=== PATIENT | female | born 1985 | race Caucasian/White ===

== ENCOUNTER 2017-11-04 08:43 | Emergency (ER) | payer OTHER, MEDICAID ==
[2017-11-04 08:51] VITALS: BP 118/61
[2017-11-04 09:23] LABS: APPEARANCE,URINE CLOUDY; BILIRUBIN,URINE NEGATIVE (NEGATIVE); COLOR,URINE YELLOW; GLUCOSE, URINE NEGATIVE (NEGATIVE); KETONES,URINE NEGATIVE (NEGATIVE); LEUKOCYTE ESTERASE,URINE LARGE (NEGATIVE); NITRITE,URINE NEGATIVE (NEGATIVE); PROTEIN,URINE NEGATIVE (NEGATIVE); URINE SPECIFIC GRAVITY 1.015; UROBILINOGEN,URINE NEGATIVE mg/dL (<2.0)
--- NOTE | 2017-11-04 09:38 | ER Document Report ---
HPI - HPI Patient complains to provider of: Dysuria Pain Level: 3 Context: Patient is a 32-year-old healthy female complaining of dysuria, urinary urgency , frequency and small voids. All of the symptoms came on acutely last evening. Patient does have a history of urinary tract infections. Patient denies any fever, flank pain, abdominal pain, vaginal discharge or vaginal pain Associated Symptoms: None Exacerbated by: Denies Relieved by: Denies Similar symptoms previously: Yes Recently seen / treated by doctor: No - ROS Systems Reviewed and Negative: Yes All other systems reviewed and negative Past Medical History - General Information source: Patient - Social History Smoking Status: Current Every Day Smoker Frequency of alcohol use: None Drug Abuse: None Lives with: Family Family History: Reviewed & Not Pertinent Patient has suicidal ideation: No Patient has homicidal ideation: No - Medical History Medical History: Negative Renal/ Medical History: Denies: Hx Peritoneal Dialysis Vertical Provider Document - CONSTITUTIONAL Agree With Documented VS: Yes Exam Limitations: No Limitations - INFECTION CONTROL TRAVEL OUTSIDE OF THE [place] IN LAST 30 DAYS: No - HEENT HEENT: Atraumatic, PERRLA - NECK Neck: Normal Inspection, Supple - RESPIRATORY Respiratory: Breath Sounds Normal, No Respiratory Distress - CARDIOVASCULAR Cardiovascular: Regular Rate, Regular Rhythm - GI/ABDOMEN Gastrointestinal: Abdomen Soft, Abdomen Non-Tender, Normal Bowel Sounds. negative: Abdominal Guarding, Abdominal Rebound - BACK Back: Normal Inspection. negative: CVA Tenderness-Right, CVA Tenderness-Left - NEURO Level of Consciousness: Awake, Alert, Appropriate - DERM Integumentary: Warm, Dry, No Rash Course - Re-evaluation Re-evalutation: 11/04/17 09:34 History and physical are consistent with an uncomplicated cystitis. Urinalysis confirms large leukocytes. Patient shows no symptoms of sepsis or dehydration. Urine culture will be added. I will treat patient with course of antibiotics and a urinary anesthetic. Home care, primary care follow-up in ED return precautions were discussed. Patient is agreeable with plan and stable for discharge - Vital Signs Vital signs: Temp Pulse Resp BP Pulse Ox 98.6 F 80 14 118/61 100 11/04/17 08:50 11/04/17 08:50 11/04/17 08:50 11/04/17 08:50 11/04/17 08:50 - Laboratory Laboratory results interpreted by me: 11/04/17 08:55 Ur Leukocyte Esterase LARGE H Discharge - Discharge Clinical Impression: UTI (urinary tract infection) Qualifiers: Urinary tract infection type: acute cystitis Hematuria presence: without hematuria Qualified Code(s): N30.00 - Acute cystitis without hematuria Condition: Stable Disposition: HOME, SELF-CARE Instructions: Urinary Tract Infection ([facility]), Urinary Anesthetic Agent ([facility]), Antibiotic Therapy ([facility]) Additional Instructions: You are being treated for a urinary tract infection Please take all of your antibiotic as prescribed The urinary anesthetic will provide relief from the urinary discomfort, please take this as needed Push fluids Follow-up with your primary care if symptoms persist Return to the emergency department for any fever, vomiting, increasing abdominal pain or worsening of your status A urine culture is pending. We will notify you if any change in treatment is necessary Prescriptions: Ciprofloxacin HCl [Cipro 500 mg Tablet] 500 mg PO BID #10 tablet Phenazopyridine HCl [Pyridium 200 mg Tablet] 200 mg PO TID PRN #9 tablet PRN Reason:
== END 2017-11-04 09:51 | disposition home or self-care (01) ==
LOC: ER 08:43
DX: N30.00 Acute cystitis without hematuria (principal); R30.0 Dysuria; R39.15 Urgency of urination; R35.0 Frequency of micturition; F17.200 Nicotine dependence, unspecified, uncomplicated
CPT/HCPCS: 81001; 99283

== ENCOUNTER 2018-03-19 16:48 | Outpatient (CLI) | payer MEDICAID ==
[2018-03-19] MEDS ORDERED: ONDANSETRON HCL 8 MG TABLET PO ONE (18:02)
[2018-03-19 18:34] LABS: APPEARANCE,URINE SLIGHTLY-CLOUDY; BILIRUBIN,URINE NEGATIVE (NEGATIVE); COLOR,URINE YELLOW; GLUCOSE, URINE NEGATIVE (NEGATIVE); KETONES,URINE NEGATIVE (NEGATIVE); LEUKOCYTE ESTERASE,URINE NEGATIVE (NEGATIVE); NITRITE,URINE NEGATIVE (NEGATIVE); PROTEIN,URINE NEGATIVE (NEGATIVE); URINE SPECIFIC GRAVITY 1.014; UROBILINOGEN,URINE NEGATIVE mg/dL (<2.0)
[2018-03-19 18:40] LABS: URINE AMPHETAMINES SCREEN NEGATIVE; URINE BARBITURATES SCREEN NEGATIVE; URINE BENZODIAZEPINES SCREEN NEGATIVE; URINE COCAINE SCREEN NEGATIVE; URINE MARIJUANA (THC) SCREEN NEGATIVE; URINE METHADONE SCREEN NEGATIVE; URINE PHENCYCLIDINE SCREEN NEGATIVE
== END 2018-03-19 19:07 | disposition home or self-care (01) ==
LOC: LC 16:48
PROVIDERS: ATTEND Obstetrics & Gynecology Gynecology
PROC: 4A1HXCZ Monitoring of Products of Conception, Cardiac Rate, External Approach (ICD-10-PCS; principal; 2018-03-19)
DX: O99.89 Other specified diseases and conditions complicating pregnancy, childbirth and the puerperium (principal); H53.9 Unspecified visual disturbance; R10.9 Unspecified abdominal pain; R51 Headache; Z3A.29 29 weeks gestation of pregnancy
CPT/HCPCS: 59899; 81001; 80307; J3490; S0119

== ENCOUNTER → 2018-03-22 | Outpatient (CLI) | payer OTHER, MEDICAID ==
[2018-03-22 11:31] LABS: ABSOLUTE EOSINOPHILS # (AUTO) 0.1 10^3/uL (0.0-0.6); ABSOLUTE LYMPHOCYTES (AUTO) 1.6 10^3/uL (0.5-4.7); ABSOLUTE MONOCYTES (AUTO) 0.6 10^3/uL (0.1-1.4); ABSOLUTE NEUT (AUTO) 7.8 10^3/uL (1.7-8.2); BASOPHILS % (AUTO) 0.3 % (0-2); EOSINOPHILS % (AUTO) 0.7 % (0-6); HEMATOCRIT 33.7 % (36.0-47.0); HEMOGLOBIN 11.9 g/dL (12.0-15.5); LYMPHOCYTES % (AUTO) 15.9 % (13-45); MEAN CORPUSCULAR HEMOGLOBIN 32.3 pg (27.0-33.4); MEAN CORPUSCULAR HGB CONC 35.3 g/dL (32.0-36.0); MEAN CORPUSCULAR VOLUME 92 fl (80-97); MONOCYTES % (AUTO) 5.6 % (3-13); PLATELET COUNT 271 10^3/uL (150-450); RED BLOOD COUNT 3.69 10^6/uL (3.72-5.28); RED CELL DISTRIBUTION WIDTH 13.5 % (11.5-14.0); SEGMENTED NEUTROPHILS % (AUTO) 77.5 % (42-78); TOTAL CELLS COUNTED % (AUTO) 100 %; WHITE BLOOD COUNT 10.1 10^3/uL (4.0-10.5)
[2018-03-22 12:00] LABS: ASPARTATE AMINO TRANSFERASE 23 U/L (14-36); URIC ACID 4.6 mg/dL (2.5-6.2)
[2018-03-22 15:03] LABS: UR PRO/CREAT RATIO RESULT 0.1 mg/mg (0.0-0.2); URINE PROTEIN 12.1 mg/dL (<12)
== END ==
LOC: LAB 10:49
PROVIDERS: ATTEND Registered Nurse Women's Health Care, Ambulatory
DX: O99.89 Other specified diseases and conditions complicating pregnancy, childbirth and the puerperium (principal); H53.9 Unspecified visual disturbance; R51 Headache
CPT/HCPCS: 36415; 82565; 82570; 83615; 84156; 84450; 84550; 85025

== ENCOUNTER 2018-03-31 07:10 | Outpatient (CLI) | payer OTHER, MEDICAID ==
[2018-03-31] MEDS ORDERED: ONDANSETRON HCL INJ/PF 4 MG/2 ML SDV IV ONE (07:21)
[2018-03-31] MEDS ORDERED: DEXTROSE 5%-LACTATED RINGERS 1,000 ML IV PRN (07:22)
[2018-03-31] MEDS ORDERED: ONDANSETRON HCL INJ/PF 4 MG/2 ML SDV ONE (07:24)
[2018-03-31] MEDS ORDERED: MAG HYDROX/AL HYDROX/SIMETH SUSP 30 ML UDCUP PO ONE (08:06)
[2018-03-31] MEDS ORDERED: MAG HYDROX/AL HYDROX/SIMETH SUSP 30 ML UDCUP ONE (08:08)
[2018-03-31 08:18] LABS: APPEARANCE,URINE SLIGHTLY-CLOUDY; BILIRUBIN,URINE NEGATIVE (NEGATIVE); COLOR,URINE YELLOW; GLUCOSE, URINE NEGATIVE (NEGATIVE); KETONES,URINE TRACE mg/dL (NEGATIVE); LEUKOCYTE ESTERASE,URINE NEGATIVE (NEGATIVE); NITRITE,URINE NEGATIVE (NEGATIVE); PROTEIN,URINE NEGATIVE (NEGATIVE); URINE SPECIFIC GRAVITY 1.013
[2018-03-31 08:30] LABS: URINE AMPHETAMINES SCREEN NEGATIVE; URINE BARBITURATES SCREEN NEGATIVE; URINE BENZODIAZEPINES SCREEN NEGATIVE; URINE COCAINE SCREEN NEGATIVE; URINE MARIJUANA (THC) SCREEN NEGATIVE; URINE METHADONE SCREEN NEGATIVE; URINE PHENCYCLIDINE SCREEN NEGATIVE
== END 2018-03-31 09:22 | disposition home or self-care (01) ==
LOC: LC 07:10
PROVIDERS: ATTEND Student in an Organized Health Care Education/Training Program
PROC: 4A1HXCZ Monitoring of Products of Conception, Cardiac Rate, External Approach (ICD-10-PCS; principal; 2018-03-31)
DX: O47.03 False labor before 37 completed weeks of gestation, third trimester (principal); O26.893 Other specified pregnancy related conditions, third trimester; R11.2 Nausea with vomiting, unspecified; Z3A.30 30 weeks gestation of pregnancy
CPT/HCPCS: 59899; 81005; 80307; J2405

== ENCOUNTER 2018-04-02 19:48 | Outpatient (CLI) | payer OTHER, MEDICAID ==
[2018-04-02 20:22] LABS: APPEARANCE,URINE CLOUDY; BILIRUBIN,URINE NEGATIVE (NEGATIVE); COLOR,URINE YELLOW; GLUCOSE, URINE NEGATIVE (NEGATIVE); KETONES,URINE NEGATIVE (NEGATIVE); LEUKOCYTE ESTERASE,URINE TRACE (NEGATIVE); NITRITE,URINE NEGATIVE (NEGATIVE); PROTEIN,URINE NEGATIVE (NEGATIVE); URINE SPECIFIC GRAVITY 1.011; UROBILINOGEN,URINE NEGATIVE mg/dL (<2.0)
[2018-04-02 20:36] LABS: URINE AMPHETAMINES SCREEN NEGATIVE; URINE BARBITURATES SCREEN NEGATIVE; URINE BENZODIAZEPINES SCREEN NEGATIVE; URINE COCAINE SCREEN NEGATIVE; URINE MARIJUANA (THC) SCREEN NEGATIVE; URINE METHADONE SCREEN NEGATIVE; URINE PHENCYCLIDINE SCREEN NEGATIVE
== END 2018-04-02 20:56 | disposition home or self-care (01) ==
LOC: LC 19:48
PROVIDERS: ATTEND Obstetrics & Gynecology Gynecology
PROC: 4A1HXCZ Monitoring of Products of Conception, Cardiac Rate, External Approach (ICD-10-PCS; principal; 2018-04-02)
DX: O21.9 Vomiting of pregnancy, unspecified (principal); Z3A.31 31 weeks gestation of pregnancy
CPT/HCPCS: 80307; 81001

== ENCOUNTER 2018-05-25 20:15 | Outpatient (CLI) | payer MEDICAID ==
[2018-05-25 20:43] LABS: APPEARANCE,URINE SLIGHTLY-CLOUDY; BILIRUBIN,URINE NEGATIVE (NEGATIVE); COLOR,URINE YELLOW; GLUCOSE, URINE NEGATIVE (NEGATIVE); KETONES,URINE NEGATIVE (NEGATIVE); LEUKOCYTE ESTERASE,URINE MODERATE (NEGATIVE); NITRITE,URINE NEGATIVE (NEGATIVE); PROTEIN,URINE NEGATIVE (NEGATIVE); URINE SPECIFIC GRAVITY 1.013
[2018-05-25 20:58] LABS: URINE AMPHETAMINES SCREEN NEGATIVE; URINE BARBITURATES SCREEN NEGATIVE; URINE BENZODIAZEPINES SCREEN NEGATIVE; URINE COCAINE SCREEN NEGATIVE; URINE MARIJUANA (THC) SCREEN NEGATIVE; URINE METHADONE SCREEN NEGATIVE; URINE PHENCYCLIDINE SCREEN NEGATIVE
[2018-05-25] MEDS ORDERED: ACETAMINOPHEN 325 MG TABLET PO ONE (22:40)
[2018-05-25] MEDS ORDERED: HYDROXYZINE PAMOATE 50 MG CAPSULE PO ONE (22:40)
[2018-05-25] MEDS ORDERED: HYDROXYZINE PAMOATE 50 MG CAPSULE ONE (22:42)
[2018-05-25] MEDS ORDERED: ACETAMINOPHEN 325 MG TABLET ONE (22:43)
--- NOTE | 2018-05-25 23:21 | Non Stress Test Report ---
Non Stress Test Datetime Report Generated by CPN: 05/25/2018 23:21 DEMOGRAPHIC Test Number: 1 EGA NST: 38.4 INDICATION Indication for Study: Ordered by Provider MONITORING Monitor Explained: Monitor Explained; Test Explained; Patient Verbalized Understanding Time on Monitor: 05/25/2018 20:26 Time off Monitor: 05/25/2018 22:37 NST Duration: 131 NST INTERVENTIONS NST Interventions: Reposition Patient Physician Notified NST: Dr. Cisneros BABY A: [id number] Movement : Present Contraction Frequency : irregular FHR Baseline : 130 Accelerations : 15X15 Variability : Moderate 6-25bpm NST Review: Meets Criteria for Reactive NST NST Review and Verified By : Maggi KINGSTONT Results: Reactive NST REPORT Report Trigger: Send Report
== END 2018-05-25 22:58 | disposition home or self-care (01) ==
LOC: LC 20:15
PROVIDERS: ATTEND Obstetrics & Gynecology
PROC: 4A1HXCZ Monitoring of Products of Conception, Cardiac Rate, External Approach (ICD-10-PCS; principal; 2018-05-25)
DX: O9A.213 Injury, poisoning and certain other consequences of external causes complicating pregnancy, third trimester (principal); W19.XXXA Unspecified fall, initial encounter; O47.1 False labor at or after 37 completed weeks of gestation; Z3A.38 38 weeks gestation of pregnancy
CPT/HCPCS: 59025; 81005; 80307; J3490 ×2

== ENCOUNTER 2018-05-26 19:40 | Outpatient (CLI) | payer MEDICAID ==
[2018-05-26 20:11] LABS: APPEARANCE,URINE SLIGHTLY-CLOUDY; BILIRUBIN,URINE NEGATIVE (NEGATIVE); COLOR,URINE YELLOW; GLUCOSE, URINE NEGATIVE (NEGATIVE); KETONES,URINE NEGATIVE (NEGATIVE); LEUKOCYTE ESTERASE,URINE MODERATE (NEGATIVE); NITRITE,URINE NEGATIVE (NEGATIVE); PROTEIN,URINE NEGATIVE (NEGATIVE); URINE SPECIFIC GRAVITY 1.011
[2018-05-26 20:29] LABS: URINE AMPHETAMINES SCREEN NEGATIVE; URINE BARBITURATES SCREEN NEGATIVE; URINE BENZODIAZEPINES SCREEN NEGATIVE; URINE COCAINE SCREEN NEGATIVE; URINE MARIJUANA (THC) SCREEN NEGATIVE; URINE METHADONE SCREEN NEGATIVE; URINE PHENCYCLIDINE SCREEN NEGATIVE
--- NOTE | 2018-05-26 20:45 | Non Stress Test Report ---
Non Stress Test Datetime Report Generated by CPN: 05/26/2018 20:44 DEMOGRAPHIC Test Number: 2 EGA NST: 38.5 INDICATION Indication for Study: Ordered by Provider MONITORING Monitor Explained: Monitor Explained; Test Explained; Patient Verbalized Understanding Time on Monitor: 05/26/2018 19:59 Time off Monitor: 05/26/2018 20:40 NST Duration: 41 NST INTERVENTIONS NST Interventions: Reposition Patient Physician Notified NST: Dr. Briceño BABY A: [id number] BABY A Movement : Present Contraction Frequency : irritablity FHR Baseline : 120 Accelerations : 15X15 Decelerations : None Variability : Moderate 6-25bpm NST Review: Meets Criteria for Reactive NST NST Review and Verified By : OVIDIO Arellano NST Results: Reactive NST REPORT Report Trigger: Send Report
== END 2018-05-26 20:47 | disposition home or self-care (01) ==
LOC: LC 19:40
PROVIDERS: ATTEND Obstetrics & Gynecology
PROC: 4A1HXCZ Monitoring of Products of Conception, Cardiac Rate, External Approach (ICD-10-PCS; principal; 2018-05-26)
DX: O9A.213 Injury, poisoning and certain other consequences of external causes complicating pregnancy, third trimester (principal); Z3A.38 38 weeks gestation of pregnancy; W19.XXXA Unspecified fall, initial encounter
CPT/HCPCS: 59025; 80307; 81005; 84112

== ENCOUNTER 2018-05-28 05:07 | Inpatient (IN) | payer MEDICAID ==
[2018-05-27 11:06] LABS: ABSOLUTE EOSINOPHILS # (AUTO) 0.1 10^3/uL (0.0-0.6); ABSOLUTE LYMPHOCYTES (AUTO) 1.8 10^3/uL (0.5-4.7); ABSOLUTE MONOCYTES (AUTO) 0.6 10^3/uL (0.1-1.4); ABSOLUTE NEUT (AUTO) 7.3 10^3/uL (1.7-8.2); BASOPHILS % (AUTO) 0.1 % (0-2); EOSINOPHILS % (AUTO) 0.8 % (0-6); HEMATOCRIT 33.1 % (36.0-47.0); HEMOGLOBIN 11.4 g/dL (12.0-15.5); LYMPHOCYTES % (AUTO) 18.6 % (13-45); MEAN CORPUSCULAR HEMOGLOBIN 29.4 pg (27.0-33.4); MEAN CORPUSCULAR HGB CONC 34.5 g/dL (32.0-36.0); MEAN CORPUSCULAR VOLUME 85 fl (80-97); MONOCYTES % (AUTO) 6.5 % (3-13); PLATELET COUNT 274 10^3/uL (150-450); RED BLOOD COUNT 3.88 10^6/uL (3.72-5.28); RED CELL DISTRIBUTION WIDTH 14.3 % (11.5-14.0); TOTAL CELLS COUNTED % (AUTO) 100 %; WHITE BLOOD COUNT 9.9 10^3/uL (4.0-10.5)
[2018-05-27 11:10] LABS: APPEARANCE,URINE CLOUDY; BILIRUBIN,URINE NEGATIVE (NEGATIVE); COLOR,URINE YELLOW; GLUCOSE, URINE NEGATIVE (NEGATIVE); KETONES,URINE NEGATIVE (NEGATIVE); LEUKOCYTE ESTERASE,URINE LARGE (NEGATIVE); NITRITE,URINE NEGATIVE (NEGATIVE); PROTEIN,URINE NEGATIVE (NEGATIVE); URINE SPECIFIC GRAVITY 1.013
[2018-05-27 11:31] LABS: URINE AMPHETAMINES SCREEN NEGATIVE; URINE BARBITURATES SCREEN NEGATIVE; URINE BENZODIAZEPINES SCREEN NEGATIVE; URINE COCAINE SCREEN NEGATIVE; URINE MARIJUANA (THC) SCREEN NEGATIVE; URINE METHADONE SCREEN NEGATIVE; URINE PHENCYCLIDINE SCREEN NEGATIVE
[~2018-05-28 05:07] MED LIST: CEFAZOLIN 2 GM/D5W RTU 2 GM/50 ML RTUPB IV PRN; LIDOCAINE 0.5% INJ-PF (5 MG/ML) 50 ML SDV SUBCUT PRN; RINGERS SOLUTION,LACTATED 2,000 ML IV ONE
[2018-05-28] MEDS ORDERED: BUPIVACAINE HCL/DEX-WATER/PF 15 MG/2 ML AMPULE ONE (06:58)
[2018-05-28] MEDS: LACTATED RINGERS 1000 ML IV PRN ×2 (07:18→20:01)
[2018-05-28] MEDS ORDERED: MIDAZOLAM 2 MG/2 ML INJ ONE (07:22)
[2018-05-28] MEDS ORDERED: OXYTOCIN 10 UNIT/ML VIAL ONE (07:22)
[2018-05-28] MEDS ORDERED: EPHEDRINE SULFATE INJ 50 MG/1 ML AMPULE ONE (07:22)
[2018-05-28] MEDS ORDERED: KETOROLAC TROMETHAMINE INJ/PF 30 MG/1 ML SDV ONE (07:22)
[2018-05-28] MEDS ORDERED: FENTANYL CITRATE INJ/PF 100 MCG/2 ML AMPUL ONE ×2 (07:22→09:33)
[2018-05-28] MEDS ORDERED: OXYTOCIN/NORMAL SALINE 20 UNIT/1,000 ML RTUINJ ONE (07:22)
[2018-05-28] MEDS ORDERED: ONDANSETRON HCL INJ/PF 4 MG/2 ML SDV ONE (07:23)
[2018-05-28] MEDS ORDERED: METHYLERGONOVINE MALEATE INJ/PF 0.2 MG/1 ML AMPULE ONE (07:23)
[2018-05-28] MEDS ORDERED: ACETAMINOPHEN 1,000 MG/100 ML RTUPB IV ONE (07:23)
[2018-05-28] MEDS ORDERED: FENTANYL CITRATE INJ/PF 100 MCG/2 ML AMPUL IV PRN ×3 (07:44)
[2018-05-28] MEDS ORDERED: ONDANSETRON HCL INJ/PF 4 MG/2 ML SDV IV PRN (07:44)
[2018-05-28] MEDS ORDERED: PROMETHAZINE HCL INJ 25 MG/1 ML VIAL IV PRN ×3 (07:44→12:50)
[2018-05-28] MEDS ORDERED: MEPERIDINE HCL/PF INJ 25 MG/1 ML DISP.SYRIN IV PRN ×2 (07:44→09:37)
[2018-05-28] MEDS ORDERED: DIPHENHYDRAMINE HCL 50 MG/ML VIAL IV PRN ×2 (07:44→12:52)
[2018-05-28] MEDS ORDERED: PROPOFOL INJ 200 MG/20 ML VIAL IV ONE (08:26)
[2018-05-28] MEDS ORDERED: MEPERIDINE HCL/PF INJ 25 MG/1 ML DISP.SYRIN ONE (09:23)
[2018-05-28] MEDS ORDERED: MORPHINE SULFATE 10 MG/ML INJ ONE ×2 (09:24→12:54)
--- NOTE | 2018-05-28 09:40 | PDOC DELIVERY SUMMARY ---
Delivery Summary - Maternal Hx : Hx Para: III Hx # Term Pregnancies: 3 Hx Total # of Abortions (Sponateous & Elective): 3 WILLY: 06/04/18 Risk Factors: Previous Ruptured Membranes: AROM Time of Rupture: 08:07 Fluids: Clear - Delivery Presentation: Vertex Heart Rate Monitoring: Done Pre-Operatively Support Person Present: Yes Location: OR : Scheduled Placenta: Within Normal Limits Number of Vessels (Cord): 3 Nuchal Cord: Yes Delivery of Placenta Date: 05/28/18 Delivery of Placenta Time: 08:11 Estimated Blood Loss: 800 ml - Medications Type of Anesthesia:: Spinal - Delivery Medications Delivery Meds: Methergine 0.2mg IM - Infant Assess and Care Baby 1 Male Delivery of Date: 05/28/18 Delivery of Time: 08:09 at 1 minute: 8 at 5 minutes: 9 Preprinted Number On Band: [id number] Infant Skin to Skin: No To Nursery At: 08:19 Mode of Transport: Bassinet Delivery Weight: 3,490 Delivery Length: 20.75 in - Delivery Personnel Single Pointed Operator: ROES BANSAL Nursery RN: KUSHAL STEVENS RN: ADAM GONZALEZ MD: DEX JOE
--- NOTE | 2018-05-28 12:13 | Operative Report ---
Operative Report DATE OF SURGERY: 05/28/18 PREOPERATIVE DIAGNOSIS: 1. Intrauterine at 39-0/7 weeks. 2. section x2. 3. Rh positive. 4. Rubella immune POSTOPERATIVE DIAGNOSIS: Same OPERATION: Repeat section SURGEON: DEX ADKINS ANESTHESIA: Spinal TISSUE REMOVED OR ALTERED: Placenta COMPLICATIONS: None ESTIMATED BLOOD LOSS: 800 ml INTRAOPERATIVE FINDINGS: Thin lower uterine segment; normal bilateral tubes and ovaries; male in a cephalic position; Apgars 8 at 1, 9 at 5 with a weight of 7 pounds 11 ounces PROCEDURE: The patient was taken to the operating room where spinal anesthesia was administered without difficulty. A Serrano catheter was then placed in the patient's bladder. Next, the patient was prepared and draped in the normal sterile fashion in dorsal supine position with a leftward tilt. A Pfannenstiel skin incision was then made with a scalpel, using her previous incision as a guide, which was carried through to the underlying layer of fascia. The fascia was then incised in the midline and the incision was extended laterally with the Zhou scissors. The superior aspect of the fascial incision was then grasped with Myla clamps, elevated, and underlying rectus muscles dissected off both sharply and bluntly. Attention was then turned to the inferior aspect of this incision which, in a similar fashion, was grasped, tented up with Myla clamps, and the rectus muscles dissected off both sharply and bluntly. The rectus muscles were then in the midline with the scalpel and the peritoneum was identified, tented up and entered sharply with the Metzenbaum scissors. The peritoneal incision was then extended superiorly and inferiorly with good visualization of the bladder. The bladder blade was then inserted and the vesicouterine peritoneum was identified, grasped with pickups and entered sharply with the Metzenbaum scissors. The incision was then extended laterally and the bladder flap was created digitally. The bladder blade was then reinserted and the lower uterine segment was incised in a transverse fashion with scalpel. It was noted that the lower uterine segment was very thin and actually a scalpel was not needed, to transect the lower uterine segment. The bladder blade was then removed and the 's head delivered atraumatically with the assistance of a vacuum. The nose and mouth were then suctioned with the bulb suction and the cord was clamped and cut. The was handed off to the awaiting sewage screen operator. Cord blood was obtained. The placenta was then removed manually and the uterus exteriorized and cleared of all clots and debris. The uterine incision was then repaired with 0 Vicryl in a running, locked fashion. There was some tearing of the inferior edge of the incision secondary to the lower uterine segment being so thin that out. A second layer, using 0 chromic was used to imbricate the incision for excellent hemostasis. Several areas of the lower uterine segment, below the lower aspect of the incision were repaired secondary to tearing with the suture. Hemostasis was noted. The abdomen was then copiously irrigated with warm normal saline. The uterus was then returned to the patient's abdomen. A piece of Interceed was placed over the uterine incision as well as a piece vertically on the anterior aspect of the uterus. The peritoneum was closed in a running fashion with 2-0 Vicryl. The subcutaneous fat layer was then closed in an interrupted fashion with 3-0 Vicryl. The skin was then closed in a subcuticular fashion with 4-0 Monocryl. The patient tolerated the procedure well. Sponge, lap, instrument and needle counts were correct x2. The patient was given 2 g Ancef prior to the start of the procedure. Patient was taken to the recovery room in stable condition.
[2018-05-28] MEDS ORDERED: MEASLES,MUMPS&RUBELLA VACC/PF 0.5 ML VIAL SUBCUT PRN (12:50)
[2018-05-28] MEDS ORDERED: OXYTOCIN/NORMAL SALINE 20 UNIT/1,000 ML RTUINJ IV PRN (12:50)
[2018-05-28] MEDS ORDERED: OXYCODONE-ACETAMINOPHEN 5-325 MG TABLET PO PRN (12:50)
[2018-05-28] MEDS ORDERED: MORPHINE SULFATE 10 MG/ML INJ IV PRN (12:50)
[2018-05-28] MEDS ORDERED: DIPH/PERTUSS(ACELL)/TETANUS VAC/PF 0.5 ML SYR (>=10YO) IM PRN (12:50)
[2018-05-28] MEDS ORDERED: SIMETHICONE 80 MG TAB.CHEW PO PRN (12:50)
[2018-05-28] MEDS ORDERED: ACETAMINOPHEN 325 MG TABLET PO PRN (12:50)
[2018-05-28] MEDS: OXYCODONE-ACETAMINOPHEN 5-325 MG TABLET PO PRN (18:02)
[2018-05-28] MEDS: DOCUSATE SODIUM 100 MG CAPSULE PO SCH (18:02)
[2018-05-29] MEDS: OXYCODONE-ACETAMINOPHEN 5-325 MG TABLET PO PRN ×2 (04:28→19:56)
[2018-05-29] MEDS ORDERED: KETOROLAC TROMETHAMINE INJ/PF 30 MG/1 ML SDV IV ONE (05:30)
--- NOTE | 2018-05-29 06:12 | PDOC PROGRESS REPORT ---
Subjective Progress Note for:: 05/29/18 Subjective:: Patient states that she feels good; pain controlled with Percocet although itching. Patient denies chest pain, shortness of chills and nausea/vomiting. Patient is ambulating and voiding without difficulty. Reason For Visit: REPEAT Physical Exam - Physical Exam Vital Signs: Temp Pulse Resp BP Pulse Ox 98.1 F 82 16 100/57 L 96 05/29/18 00:09 05/29/18 00:09 05/29/18 00:09 05/29/18 00:09 05/29/18 00:09 Intake & Output 05/27/18 05/28/18 05/29/18 06:59 06:59 06:59 Intake Total 1863 Output Total 625 Balance 1238 Weight 93.18 kg General appearance: PRESENT: no acute distress, well-developed, well-nourished Respiratory exam: PRESENT: clear to auscultation nadiya Cardiovascular exam: PRESENT: RRR GI/Abdominal exam: PRESENT: normal bowel sounds - Appropriate tenderness; incision: Dry/intact; no erythema--pressure dressing removed a small amount of oozing near the center, soft Extremities exam: ABSENT: calf tenderness, clubbing, full ROM, joint swelling, pedal edema, tenderness, +1 edema, +2 edema, other Result Laboratory Results: 05/27/18 10:10 Assessment & Plan - Diagnosis (1) Delivery by section using transverse incision of lower segment of uterus Is this a current diagnosis for this admission?: Yes - Plan Summary Plan Summary: Plan: 1. POD#1--status post repeat section--doing well surgically 2. Continue postoperative care
[2018-05-29 07:19] LABS: HEMATOCRIT 30.8 % (36.0-47.0); HEMOGLOBIN 10.5 g/dL (12.0-15.5); MEAN CORPUSCULAR HEMOGLOBIN 29.2 pg (27.0-33.4); MEAN CORPUSCULAR VOLUME 86 fl (80-97); PLATELET COUNT 218 10^3/uL (150-450); RED BLOOD COUNT 3.58 10^6/uL (3.72-5.28); RED CELL DISTRIBUTION WIDTH 14.4 % (11.5-14.0); WHITE BLOOD COUNT 12.1 10^3/uL (4.0-10.5)
[2018-05-29] MEDS: IBUPROFEN 800 MG TABLET PO SCH ×3 (08:00→18:32)
[2018-05-29] MEDS: PRENATAL VITAMIN W DHA CAPSULE PO SCH (09:51)
[2018-05-29] MEDS: DOCUSATE SODIUM 100 MG CAPSULE PO SCH ×2 (09:51→18:32)
[2018-05-29] MEDS ORDERED: DIPHENHYDRAMINE HCL 25 MG CAPSULE PO PRN (10:36)
[2018-05-29] MEDS ORDERED: DIPHENHYDRAMINE HCL 50 MG CAPSULE PO PRN (10:36)
[2018-05-30] MEDS: IBUPROFEN 800 MG TABLET PO SCH ×2 (00:02→05:11)
--- NOTE | 2018-05-30 10:00 | PDOC PROGRESS REPORT ---
Subjective Progress Note for:: 05/30/18 Subjective:: Patient states that she is ready to go home; pain controlled. Decreasing lochia. Patient is ambulating voiding without difficulty. Patient denies chest pain, shortness of breath, fever/chills no nausea/vomiting Reason For Visit: REPEAT Physical Exam - Physical Exam Vital Signs: Temp Pulse Resp BP Pulse Ox 98.1 F 80 16 110/64 96 05/30/18 05:10 05/30/18 05:10 05/29/18 19:32 05/30/18 05:10 05/30/18 05:10 Intake & Output 05/29/18 05/30/18 05/31/18 06:59 06:59 06:59 Intake Total 2363 780 Output Total 2575 Balance -212 780 Weight 93.18 kg General appearance: PRESENT: no acute distress Respiratory exam: PRESENT: clear to auscultation nadiya Cardiovascular exam: PRESENT: RRR GI/Abdominal exam: PRESENT: normal bowel sounds, soft - Appropriate tenderness; incision: Clean/dry/intact; no erythema Extremities exam: ABSENT: calf tenderness, clubbing, full ROM, joint swelling, pedal edema, tenderness, +1 edema, +2 edema, other Result Laboratory Results: 05/29/18 06:49 Assessment & Plan - Diagnosis (1) Delivery by section using transverse incision of lower segment of uterus Is this a current diagnosis for this admission?: Yes - Plan Summary Plan Summary: Plan: 1. POD#2-status post repeat section--doing well surgically 2. Mild anemia--stable 3. Discharge home today 4. F/U in the office in 1 week for an incision check or sooner if needed
[2018-05-30] MEDS: PRENATAL VITAMIN W DHA CAPSULE PO SCH (10:09)
[2018-05-30] MEDS: DOCUSATE SODIUM 100 MG CAPSULE PO SCH (10:09)
[2018-05-30 12:28] VITALS: BP 113/62
--- NOTE | 2018-06-09 11:13 | PDOC DISCHARGE SUMMARY ---
Final Diagnosis Discharge Date: 05/30/18 - Final Diagnosis (1) Delivery by section using transverse incision of lower segment of uterus Is this a current diagnosis for this admission?: Yes Discharge Data - Discharge Medication Prescriptions: Ibuprofen [Motrin 800 mg Tablet] 800 mg PO Q6 #60 tablet Oxycodone HCl/Acetaminophen [Percocet 5-325 mg Tablet] 1 tab PO Q4HP PRN #30 tablet PRN Reason: Home Medications: Pnv No.121/Iron/Folic Acid [ Multivitamin Tablet] 1 tab PO DAILY Ibuprofen [Motrin 800 mg Tablet] 800 mg PO Q6 #60 tablet 05/30/18 Oxycodone HCl/Acetaminophen [Percocet 5-325 mg Tablet] 1 tab PO Q4HP PRN #30 tablet 05/30/18 Vit/Dha [ Multi + Dha Capsule] 1 cap PO DAILY capsule Reason(s) for Admission: Ceasarean Section-Repeat Procedures: NST, Ultrasound Intrapartum Procedure(s): : Low Cervical, Transverse - Diagnosis Test Laboratory: Temp Pulse Resp BP Pulse Ox 98.1 F 80 16 113/62 96 05/30/18 12:21 05/30/18 12:21 05/30/18 12:21 05/30/18 12:21 05/30/18 12:21 05/27/18 05/27/18 05/29/18 10:00 10:10 06:49 RBC 3.88 3.58 L Hgb 11.4 L 10.5 L Hct 33.1 L 30.8 L Urine Opiates Screen NEGATIVE - Discharge information/Instructions Discharge Activity: No Driving, No Lifting Over 10 Pounds, No Lifting/Push/ Pulling, Pelvic Rest, Slowly Increase Activity, No tub bath Discharge Diet: As Tolerated Disposition: HOME, SELF-CARE Follow up with: [facility] in: 1, Weeks
== END 2018-05-30 13:35 | disposition home or self-care (01) | DRG 788 ==
LOC: LR 05:07 → 2S 05:19
PROVIDERS: ADMIT Obstetrics & Gynecology; ATTEND Obstetrics & Gynecology
PROC: 4A1HXCZ Monitoring of Products of Conception, Cardiac Rate, External Approach (ICD-10-PCS; 2018-05-28)
PROC: 10D00Z1 Extraction of Products of Conception, Low, Open Approach (ICD-10-PCS; principal; 2018-05-28 07:45)
DX: O34.211 Maternal care for low transverse scar from previous cesarean delivery (principal); Z28.21 Immunization not carried out because of patient refusal; Z3A.39 39 weeks gestation of pregnancy; Z37.0 Single live birth
CPT/HCPCS: 1961; 36415; 59025; 80307; 81001; 85025; 85027; 86850; 86900; 86901; 94799; C1765; J0131; J1885; J2175; J2210; J2250; J2270; J2405; J2550; J2590; J2704; J3010; J3490; J7120

== ENCOUNTER 2018-10-19 08:32 | Emergency (ER) | payer MEDICAID ==
[2018-10-19 08:38] VITALS: BP 115/62
--- NOTE | 2018-10-19 09:03 | ER Document Report ---
ED Medical Screen (RME) - General Chief Complaint: Flank Pain Stated Complaint: FLANK PAIN Time Seen by Provider: 10/19/18 08:58 Primary Care Provider: CONCHIS IGNACIO PA [Primary Care Provider] - Follow up as needed Mode of Arrival: Ambulatory Information source: Patient Notes: Patient presents emergency department with complaints of bilateral flank pain and pain with void that started yesterday. She reports that she took Pyridium once yesterday and she felt better. She denies fever vomiting diarrhea. Reports history of UTIs. I have greeted and performed a rapid initial assessment of this patient. A comprehensive ED assessment and evaluation of the patient, analysis of test results and completion of the medical decision making process will be conducted by additional ED providers. TRAVEL OUTSIDE OF THE [place] IN LAST 30 DAYS: No - Related Data Allergies/Adverse Reactions: hydrocodone Adverse Reaction (Verified 10/19/18 08:33) oxycodone Adverse Reaction (Verified 10/19/18 08:33) Past Medical History Renal/ Medical History: Denies: Hx Peritoneal Dialysis GI Medical History: Reports: Hx Gastroesophageal Reflux Disease - Immunizations History of Influenza Vaccine for 05/2017 - 10/2017 Season: No Physical Exam - Vital signs Vitals: Temp Pulse Resp BP Pulse Ox 98.1 F 88 16 115/62 98 10/19/18 08:36 10/19/18 08:36 10/19/18 08:36 10/19/18 08:36 10/19/18 08:36 Course - Vital Signs Vital signs: Temp Pulse Resp BP Pulse Ox 98.1 F 88 16 115/62 98 10/19/18 08:36 10/19/18 08:36 10/19/18 08:36 10/19/18 08:36 10/19/18 08:36 Doctor's Discharge - Discharge Referrals: CONCHIS IGNACIO PA [Primary Care Provider] - Follow up as needed
[2018-10-19 09:24] LABS: APPEARANCE,URINE SLIGHTLY-CLOUDY; BILIRUBIN,URINE NEGATIVE (NEGATIVE); GLUCOSE, URINE NEGATIVE (NEGATIVE); KETONES,URINE NEGATIVE (NEGATIVE); LEUKOCYTE ESTERASE,URINE MODERATE (NEGATIVE); NITRITE,URINE POSITIVE (NEGATIVE); PROTEIN,URINE NEGATIVE (NEGATIVE); URINE SPECIFIC GRAVITY 1.014
[2018-10-19 09:25] LABS: COLOR,URINE DARK YELLOW
--- NOTE | 2018-10-19 12:14 | ER Document Report ---
Entered by DEION CAREY SCRIBE 10/19/18 0932 Acting as scribe for:ANTOINE ESCOBAR MD ED General - General Chief Complaint: Flank Pain Stated Complaint: FLANK PAIN Time Seen by Provider: 10/19/18 08:58 Primary Care Provider: CELINE CHUNG MD [Primary Care Provider] - Follow up as needed Mode of Arrival: Ambulatory Information source: Patient Notes: Patient is a 32 year old female presenting to the emergency department complaining of lower back pain and burning with urination onset yesterday. Patient states she took Pyridium yesterday which eased her lower back pain and burning urination. She states denies any fevers, vomiting, diarrhea or foul urine odor. Of significance, patient is 4 months post and is currently on Liletta. She state she has had intermittent periods for the last few months. Patient states that she is not breast-feeding. TRAVEL OUTSIDE OF THE [place] IN LAST 30 DAYS: No - Related Data Allergies/Adverse Reactions: hydrocodone Adverse Reaction (Verified 10/19/18 08:33) oxycodone Adverse Reaction (Verified 10/19/18 08:33) Past Medical History - General Information source: Patient - Social History Smoking Status: Current Every Day Smoker Frequency of alcohol use: None Drug Abuse: None Family History: Reviewed & Not Pertinent Patient has suicidal ideation: No Patient has homicidal ideation: No GI Medical History: Reports: Hx Gastroesophageal Reflux Disease Review of Systems - Review of Systems Constitutional: No symptoms reported EENT: No symptoms reported Cardiovascular: No symptoms reported Respiratory: No symptoms reported Gastrointestinal: No symptoms reported Genitourinary: See HPI, Burning Female Genitourinary: No symptoms reported Musculoskeletal: No symptoms reported, See HPI, Back pain Skin: No symptoms reported Hematologic/Lymphatic: No symptoms reported Neurological/Psychological: No symptoms reported Physical Exam - Vital signs Vitals: Temp Pulse Resp BP Pulse Ox 98.1 F 88 16 115/62 98 10/19/18 08:36 10/19/18 08:36 10/19/18 08:36 10/19/18 08:36 10/19/18 08:36 - Notes Notes: GENERAL: Alert, interacts well. No acute distress. HEAD: Normocephalic, atraumatic. EYES: Pupils equal, round, and reactive to light. Extraocular movements intact. ENT: Oral mucosa moist, tongue midline. NECK: Full range of motion. Supple. Trachea midline. LUNGS: Clear to auscultation bilaterally, no wheezes, rales, or rhonchi. No respiratory distress. HEART: Regular rate and rhythm. No murmurs, gallops, or rubs. ABDOMEN: Soft, non-tender. Non-distended. Bowel sounds present in all 4 qu adrants. No guarding, rigidity, or rebound. EXTREMITIES: Moves all 4 extremities spontaneously. NEUROLOGICAL: Alert and oriented x3. Normal speech. PSYCH: Normal affect, normal mood. SKIN: Warm, dry, normal turgor. No rashes or lesions noted. BACK: No CVA tenderness to percusison. Lower lumbar tenderness to palpation. Course - Vital Signs Vital signs: Temp Pulse Resp BP Pulse Ox 98.1 F 88 16 115/62 98 10/19/18 08:36 10/19/18 08:36 10/19/18 08:36 10/19/18 08:36 10/19/18 08:36 - Laboratory Laboratory results interpreted by me: 10/19/18 09:10 Urine Nitrite POSITIVE H Urine Urobilinogen 4.0 H Ur Leukocyte Esterase MODERATE H Discharge - Discharge Clinical Impression: Low back pain Urinary tract infection Qualifiers: Urinary tract infection type: acute cystitis Hematuria presence: without hematuria Qualified Code(s): N30.00 - Acute cystitis without hematuria Disposition: HOME, SELF-CARE I personally performed the services described in the documentation, reviewed and edited the documentation which was dictated to the scribe in my presence, and it accurately records my words and actions.
== END 2018-10-19 09:50 | disposition home or self-care (01) ==
LOC: ER 08:32
DX: N30.00 Acute cystitis without hematuria (principal); M54.5 Low back pain; R10.9 Unspecified abdominal pain; R30.9 Painful micturition, unspecified; Z79.899 Other long term (current) drug therapy; F17.200 Nicotine dependence, unspecified, uncomplicated
CPT/HCPCS: 81001; 87086; 99284

== ENCOUNTER 2019-01-11 08:39 | Emergency (ER) | payer MEDICAID ==
--- NOTE | 2019-01-11 10:46 | RADIOLOGY REPORT (SQ) ---
EXAM DESCRIPTION: CHEST 2 VIEWS COMPLETED DATE/TIME: 01/11/2019 10:32 am REASON FOR STUDY: cough, fever, fatigue COMPARISON: None. EXAM PARAMETERS: NUMBER OF VIEWS: two views TECHNIQUE: Digital Frontal and Lateral radiographic views of the chest acquired. RADIATION DOSE: NA LIMITATIONS: none FINDINGS: LUNGS AND PLEURA: Left perihilar - left upper lung airspace opacity, may be on the basis of infiltrate. Pneumothorax or pleural effusion. MEDIASTINUM AND HILAR STRUCTURES: No masses or contour abnormalities. HEART AND VASCULAR STRUCTURES: Heart normal size. No evidence for failure. BONES: No acute findings. HARDWARE: None in the chest. OTHER: No other significant finding. IMPRESSION: 1. Left perihilar--left upper lung airspace opacity, may be on the basis of infiltrate. A follow-up examination after treatment to document for interval resolution. TECHNICAL DOCUMENTATION: JOB ID: [id number] [employer]- All Rights Reserved Reading location - IP/workstation name: [email or web address]
[2019-01-11] MEDS ORDERED: CEFTRIAXONE INJ 1000 MG VIAL IM ONE (11:07)
[2019-01-11] MEDS ORDERED: LIDOCAINE 1% INJ-PF (10 MG/ML) 30 ML SDV ONE (11:15)
[2019-01-11] MEDS ORDERED: LIDOCAINE 1% INJ-PF (10 MG/ML) 30 ML SDV IM ONE (11:16)
--- NOTE | 2019-01-11 11:22 | ER Document Report ---
HPI - HPI Time Seen by Provider: 01/11/19 09:57 Pain Level: 3 Notes: Patient presents the emergency department with chief complaint of fever and cough. Patient reports he has had a cough ongoing for several weeks, developed a fever over the last 2 days. Reports that she feels like the cough is productive but she cannot spit anything out. Patient denies any nausea, vomiting, diarrhea or urinary symptoms. Denies history of pneumonia. - CONSTITUTIONAL Constitutional: REPORTS: Fever. DENIES: Chills - EENT EENT: REPORTS: Sore Throat. DENIES: Ear Pain, Eye problems - NEURO Neurology: REPORTS: Headache - chronic migraines. DENIES: Weakness, Vision blurred, Dizzinesss / Vertigo - CARDIOVASCULAR Cardiovascular: DENIES: Chest pain - RESPIRATORY Respiratory: REPORTS: Coughing. DENIES: Trouble Breathing - GASTROINTESTINAL Gastrointestinal: DENIES: Abdominal Pain, Black / Bloody Stools - URINARY Urinary: DENIES: Dysuria, Urgency, Frequency - REPRODUCTIVE Reproductive: DENIES: : - MUSCULOSKELETAL Musculoskeletal: DENIES: Extremity pain Past Medical History - General Information source: Patient - Social History Smoking Status: Never Smoker Chew tobacco use (# tins/day): No Frequency of alcohol use: Occasional Drug Abuse: None Family History: Reviewed & Not Pertinent Patient has suicidal ideation: No Patient has homicidal ideation: No Renal/ Medical History: Denies: Hx Peritoneal Dialysis GI Medical History: Reports: Hx Gastroesophageal Reflux Disease Past Surgical History: Reports: Hx Appendectomy, Hx Section - x 3, Hx Oral Surgery, Hx Thyroid Surgery - t and a Vertical Provider Document - CONSTITUTIONAL Notes: PHYSICAL EXAMINATION: GENERAL: Well-appearing, well-nourished and in no acute distress. HEAD: Atraumatic, normocephalic. EYES: Pupils equal round extraocular movements intact, conjunctiva are normal. ENT: Nares patent, bilateral TMs unremarkable. NECK: Normal range of motion, no cervical lymphadenopathy. LUNGS: No respiratory distress, lung sounds are clear and equal bilaterally. No increased work of breathing noted. Musculoskeletal: Normal range of motion NEUROLOGICAL: Normal speech, normal gait. PSYCH: Normal mood, normal affect. SKIN: Warm, Dry, normal turgor, no rashes or lesions noted. - INFECTION CONTROL TRAVEL OUTSIDE OF THE [place] IN LAST 30 DAYS: No Course - Re-evaluation Re-evalutation: Patient appears well, nontoxic and vital signs are within normal limits. Patient has no tachycardia or hypoxia. Chest x-ray appears to show a left upper lobe perihilar opacity consistent with infiltrate given patient's symptoms. Will start patient on p.o. antibiotics with plans to discharge home. - Vital Signs Vital signs: Temp Pulse Resp BP Pulse Ox 98.3 F 99 18 127/65 H 98 01/11/19 08:48 01/11/19 08:48 01/11/19 08:48 01/11/19 08:48 01/11/19 08:48 Discharge - Discharge Clinical Impression: Pneumonia Qualifiers: Pneumonia type: due to unspecified organism Laterality: unspecified laterality Lung location: unspecified part of lung Qualified Code(s): J18.9 - Pneumonia, unspecified organism Condition: Stable Disposition: HOME, SELF-CARE Additional Instructions: PNEUMONIA: Your examination indicates that you have pneumonia. This is an infection of the lung tissue, usually caused by bacteria or a virus. Symptoms include cough, fever, shaking chills, chest pain, shortness of breath, and coughing up bloody sputum. Treatment for bacterial pneumonia includes rest, antibiotics for 10 to 14 days, increasing your clear liquid intake, a cool mist humidifier at your bedside, and fever medication. Often, a repeat chest X-ray is performed in a few weeks--even if you feel better--to ascertain whether the infection has completely resolved and no underlying lung problem is present. You should call the physician if you develop persistent vomiting, high fever that does not respond to fever medication, increasing shortness of breath, confusion, or lethargy. Also, failure to improve within two to three days is an indication for re-examination. ANTIBIOTIC INJECTION: You have been given an antibiotic injection. Sometimes the injection must be combined with antibiotic pills. For some infections, the shot provides all the antibiotic that's needed. Common side effects of antibiotics include nausea, intestinal cramping, or diarrhea. These are very unusual following a shot. Women may develop vaginal yeast infections, and babies can get yeast (thrush) in the mouth following the use of antibiotics. Contact your physician if you develop significant side effects from this medication. Allergy to this antibiotic can result in hives, wheezing, faintness, or itching. If symptoms of allergy occur, call the doctor at once. ROCEPHIN: You have been given an injection of an antibiotic called Rocephin (ceftriaxone). Sometimes the injection must be combined with antibiotic pills. For some infections, such as an uncomplicated ear infection, Rocephin provides all the antibiotic that's needed. The antibiotic will be in your body for about two days. For serious infections, we usually repeat doses of Rocephin daily. Side effects are very unusual following a shot. Women may develop vaginal yeast infections, and babies can get yeast (thrush) in the mouth following the use of antibiotics. Contact your physician if you have symptoms with this medication. Allergy to this antibiotic can result in hives, wheezing, faintness, or itching. If symptoms of allergy occur, call the doctor at once. ANTIBIOTIC THERAPY: You have been given an antibiotic prescription. It's important that you take all the medication, unless instructed otherwise by your physician. Failure to complete the entire course can result in relapse of your condition. Common side effects of antibiotics include nausea, intestinal cramping, or diarrhea. Women may develop vaginal yeast infections, and babies can get yeast (thrush) in the mouth following the use of antibiotics. Contact your physician if you develop significant side effects from this medication. Allergy to this antibiotic can result in hives, wheezing, faintness, or itching. If symptoms of allergy occur, stop the medication and call the doctor. DOXYCYCLINE: Doxycycline (Vibramycin, Doryx) is an antibiotic of the tetracycline family. This type of drug is useful for infections of the respiratory tract and genital tract, and is sometimes used for intestinal infections. Unlike most tetracyclines, doxycycline can be taken with food. It is longer acting, and (usually) less prone to side effects than regular tetracycline. Tetracycline antibiotics can stain immature teeth and SHOULD NOT BE TAKEN BY CHILDREN, NURSING MOTHERS, OR WOMEN. Tetracyclines can make you more prone to sunburn. Abdominal cramping, nausea, and diarrhea are occasional side effects. Women may experience vaginal yeast infections. Call the doctor at once if you develop hives, itching, shortness of breath, or lightheadedness. FOLLOW-UP CARE: If you have been referred to a physician for follow-up care, call the physicians office for an appointment as you were instructed or within the next two days. If you experience worsening or a significant change in your symptoms, notify the physician immediately or return to the Emergency Department at any time for re-evaluation. Please take antibiotics and steriods as prescribed. Drink plenty fluids. Take ibuprofen 600 mg every 6 hours for pain. You may also use Tylenol as needed for fever. Follow-up with your primary care provider in 1 week for follow-up. Return to the emergency department with any new or worsening sympto ms. Prescriptions: Doxycycline Hyclate 100 mg PO BID #14 capsule Prednisone [Deltasone 20 mg Tablet] 3 tab PO DAILY 5 Days #15 tablet Referrals: CELINE CHUNG MD [Primary Care Provider] - Follow up as needed
[2019-01-11 11:55] VITALS: BP 113/65
== END 2019-01-11 11:55 | disposition home or self-care (01) ==
LOC: ER 08:39
DX: J18.9 Pneumonia, unspecified organism (principal); K21.9 Gastro-esophageal reflux disease without esophagitis; Z90.49 Acquired absence of other specified parts of digestive tract
CPT/HCPCS: 99283; 96372; 71046; J3490; J0696

== ENCOUNTER 2019-09-28 08:40 | Emergency (ER) | payer MEDICAID ==
[2019-09-28] MEDS ORDERED: KETOROLAC TROMETHAMINE 60 MG/2 ML SDV IM ONE (09:21)
--- NOTE | 2019-09-28 09:22 | ER Document Report ---
ED Medical Screen (RME) - General Chief Complaint: Fall Injury Stated Complaint: FALL/RECTAL PAIN Time Seen by Provider: 09/28/19 09:19 Primary Care Provider: CELINE CHUNG MD [Primary Care Provider] - Follow up as needed Notes: 33-year-old female presents with tailbone pain. Patient fell down 3 steps approximately 1 hour prior to arrival. Patient denies any other injuries or pain. Patient denies any head injury or LOC. No tenderness to C-spine, T- spine, L-spine. I have greeted and performed a rapid initial assessment of this patient. A comprehensive ED assessment and evaluation of the patient, analysis of test results and completion of the medical decision making process with be conducted by additional ED providers. TRAVEL OUTSIDE OF THE [place] IN LAST 30 DAYS: No - Related Data Allergies/Adverse Reactions: hydrocodone Adverse Reaction (Verified 09/28/19 09:19) oxycodone Adverse Reaction (Verified 09/28/19 09:19) Past Medical History Renal/ Medical History: Denies: Hx Peritoneal Dialysis GI Medical History: Reports: Hx Gastroesophageal Reflux Disease Past Surgical History: Reports: Hx Appendectomy, Hx Section - x 3, Hx Oral Surgery, Hx Thyroid Surgery - t and a Physical Exam - Vital signs Vitals: Temp Pulse Resp BP Pulse Ox 98 F 96 20 137/78 H 97 09/28/19 08:50 09/28/19 08:50 09/28/19 08:50 09/28/19 08:50 09/28/19 08:50 Course - Vital Signs Vital signs: Temp Pulse Resp BP Pulse Ox 98 F 96 20 137/78 H 97 09/28/19 08:50 09/28/19 08:50 09/28/19 08:50 09/28/19 08:50 09/28/19 08:50 Doctor's Discharge - Discharge Referrals: CELINE CHUNG MD [Primary Care Provider] - Follow up as needed
--- NOTE | 2019-09-28 10:31 | RADIOLOGY REPORT (SQ) ---
EXAM DESCRIPTION: SACRUM AND COCCYX COMPLETED DATE/TIME: 09/28/2019 9:57 am REASON FOR STUDY: fall, pain COMPARISON: None. NUMBER OF VIEWS: Three views. TECHNIQUE: AP, lateral, and tilt views of the sacrum and coccyx. LIMITATIONS: None. FINDINGS: MINERALIZATION: Normal. BONES: No acute fracture or dislocation. No worrisome bone lesions. SOFT TISSUES: No soft tissue swelling. No foreign body. OTHER: No other significant finding. IMPRESSION: NEGATIVE STUDY OF THE SACRUM AND COCCYX. TECHNICAL DOCUMENTATION: JOB ID: [id number] 2010 [employer]- All Rights Reserved Reading location - IP/workstation name: [email or web address]
--- NOTE | 2019-09-28 11:06 | ER Document Report ---
ED Fall - General Chief Complaint: Fall Injury Stated Complaint: FALL/RECTAL PAIN Time Seen by Provider: 09/28/19 09:19 Primary Care Provider: CELINE CHUNG MD [Primary Care Provider] - Follow up as needed Mode of Arrival: Ambulatory Information source: Patient TRAVEL OUTSIDE OF THE [place] IN LAST 30 DAYS: No - HPI Notes: Patient presents with pain in the sacral area. She states that she slipped and fell down some stairs this morning and landed on her tailbone. She states since that time she has had persistent pain in the tailbone area. It is severe. It radiates into her rectum. It is constant. It is worse with movement and better with rest. It is sharp. - Related data Allergies/Adverse Reactions: hydrocodone Adverse Reaction (Verified 09/28/19 09:19) oxycodone Adverse Reaction (Verified 09/28/19 09:19) Home Medications: adderall. phenergan. topamax Past Medical History - General Information source: Patient - Social History Smoking Status: Never Smoker Chew tobacco use (# tins/day): No Frequency of alcohol use: None Drug Abuse: None Family History: Reviewed & Not Pertinent Patient has suicidal ideation: No Patient has homicidal ideation: No Renal/ Medical History: Denies: Hx Peritoneal Dialysis GI Medical History: Reports: Hx Gastroesophageal Reflux Disease Past Surgical History: Reports: Hx Appendectomy, Hx Section - x 3, Hx Oral Surgery, Hx Thyroid Surgery - t and a Review of Systems - Review of Systems Constitutional: denies: Chills, Fever Cardiovascular: denies: Chest pain, Palpitations Respiratory: denies: Cough, Short of breath -: Yes All other systems reviewed and negative Physical Exam - Vital signs Vitals: Temp Pulse Resp BP Pulse Ox 98 F 96 20 137/78 H 97 09/28/19 08:50 09/28/19 08:50 09/28/19 08:50 09/28/19 08:50 09/28/19 08:50 - Rectal Tenderness: Yes Notes: Coccyx area is tender to palpation. Course - Vital Signs Vital signs: Temp Pulse Resp BP Pulse Ox 98 F 96 20 137/78 H 97 09/28/19 08:50 09/28/19 08:50 09/28/19 08:50 09/28/19 08:50 09/28/19 08:50 - Diagnostic Test Radiology reviewed: Image reviewed, Reports reviewed Discharge - Discharge Clinical Impression: Coccyx contusion Qualifiers: Encounter type: initial encounter Qualified Code(s): S30.0XXA - Contusion of lower back and pelvis, initial encounter Condition: Stable Disposition: HOME, SELF-CARE Instructions: Contusion ([facility]) Additional Instructions: Please obtain a doughnut to help alleviate the pain when sitting. Prescriptions: Ibuprofen [Motrin 600 mg Tablet] 600 mg PO Q8HP PRN #20 tablet PRN Reason: Referrals: CELINE CHUNG MD [Primary Care Provider] - Follow up as needed
[2019-09-28 11:19] VITALS: BP 102/64
== END 2019-09-28 11:21 | disposition home or self-care (01) ==
LOC: ER 08:40
DX: S30.0XXA Contusion of lower back and pelvis, initial encounter (principal); W10.9XXA Fall (on) (from) unspecified stairs and steps, initial encounter; Z79.899 Other long term (current) drug therapy
CPT/HCPCS: 36415; 84703; 72220; J1885; 96372; 99283